=== PATIENT | female | born 1980 | race Hispanic/Latino ===

== ENCOUNTER 2020-08-10 03:44 | Inpatient (IN) | payer BC ==
[2020-08-10 04:09] LABS: Hemoglobin 12.6 g/dL (12.0-16.0); Mean Corpuscular HGB CONC 35.3 g/dL (32.0-36.0); Mean Corpuscular Hemoglobin 30.9 pg (27.0-31.0); Mean Corpuscular Volume 87.3 fL (78.0-98.0); Mean Platelet Volume 7.1 fL (7.4-10.4); Platelet Count 376 thou/uL (130-400); RBC Distribution Width 11.8 % (11.5-14.5); Red Blood Cell (RBC) Count 4.08 mill/uL (4.20-5.40); White Blood Cell (WBC) Count 25.8 thou/uL (4.8-10.8)
[2020-08-10 04:18] LABS: BHCG - Serum Negative (NEGATIVE); Pregs Control Background? CLEAR/WHITE (CLR/WHITE); Pregs Control Bar Appear? YES (CONTROL BAR)
[2020-08-10 04:24] LABS: Band 15 % (5-11); Lymphocytes 11 % (21-51); MDiff Complete? YES; Monocytes 7 % (0-10); Neutrophil 67 % (42-75)
[2020-08-10] MEDS ORDERED: Ondansetron PF 4 MG/2 ML Vial ONE (04:29)
[2020-08-10] MEDS ORDERED: hydrALAZINE 20 MG/ML VIAL SLOW IVP PRN (05:55)
[2020-08-10] MEDS ORDERED: traMADol HCl 50 MG TAB PO PRN (05:55)
[2020-08-10] MEDS ORDERED: Ondansetron ODT 4 MG TAB PO PRN (05:55)
[2020-08-10] MEDS ORDERED: Dextrose 5% in Water 1,000 ML IV PRN (05:55)
[2020-08-10] MEDS ORDERED: Ondansetron PF 4 MG/2 ML Vial IVP PRN (05:55)
[2020-08-10] MEDS ORDERED: Morphine 2 MG/ML VIAL SLOW IVP PRN (05:55)
[2020-08-10] MEDS ORDERED: Ibuprofen 800 MG TAB PO PRN (05:55)
[2020-08-10] MEDS ORDERED: Dextrose 50% Abboject 50 ML SYRINGE SLOW IVP PRN (05:55)
[2020-08-10] MEDS: Acetaminophen 325 MG TAB PO SCH ×3 (06:15→17:35)
[2020-08-10] MEDS: Sodium Chloride 0.9% 1,000 ML IV SCH ×2 (06:17→08:20)
[2020-08-10 06:36] VITALS: BMI 33.4
[2020-08-10] MEDS: traMADol HCl 50 MG TAB PO PRN ×2 (08:18→21:08)
[2020-08-10] MEDS: Cyclobenzaprine 10 MG TAB PO PRN ×2 (08:18→17:31)
[2020-08-10] MEDS: Famotidine 20 MG TAB PO SCH ×2 (08:18→21:09)
[2020-08-10] MEDS: CEFAZOLIN 1 GM in Sodium Chloride 0.9% 100 ML IVPB SCH ×2 (08:19→17:35)
[2020-08-10] MEDS: Enoxaparin Sodium 40 MG/0.4 ML SYRINGE SC SCH (10:14)
[2020-08-10 12:45] LABS: SARS-CoV-2 PCR by NAA Not Detected (NotDetected)
[2020-08-10] MEDS ORDERED: ceFAZolin 1 GM/D5W 1 GM in Premix Bag 1 BAG IVPB SCH (14:00)
[2020-08-10] MEDS: Ibuprofen 200 MG TAB PO PRN (17:31)
[2020-08-11] MEDS: Acetaminophen 325 MG TAB PO SCH ×3 (00:05→12:23)
[2020-08-11] MEDS: CEFAZOLIN 1 GM in Sodium Chloride 0.9% 100 ML IVPB SCH ×2 (00:05→09:28)
[2020-08-11] MEDS: Sodium Chloride 0.9% 1,000 ML IV SCH ×2 (05:00→05:01)
[2020-08-11] MEDS: Cyclobenzaprine 10 MG TAB PO PRN ×2 (05:17→14:46)
[2020-08-11 05:44] LABS: #Basophils 0.1 thou/uL (0.0-0.2); #Eosinphils 0.9 thou/uL (0.0-0.7); #Lymphocytes 3.4 thou/uL (1.20-3.40); #Monocytes 1.1 thou/uL (0.11-0.59); #Neutrophils 7.6 thou/uL (1.40-6.50); %Basophils 0.6 % (0.0-1.0); %Eosinophils 6.6 % (0.0-10.0); %Lymphocytes 25.8 % (21.0-51.0); %Monocytes 8.3 % (0.0-10.0); %Neutrophils 58.7 % (42.0-75.0); Hemoglobin 10.9 g/dL (12.0-16.0); Mean Corpuscular HGB CONC 33.4 g/dL (32.0-36.0); Mean Corpuscular Hemoglobin 29.7 pg (27.0-31.0); Mean Platelet Volume 7.3 fL (7.4-10.4); Platelet Count 333 thou/uL (130-400); RBC Distribution Width 11.8 % (11.5-14.5); Red Blood Cell (RBC) Count 3.68 mill/uL (4.20-5.40)
[2020-08-11 06:04] LABS: Anion Gap 10 mmol/L (10-20); BUN (Urea Nitrogen) 11 mg/dL (7.0-18.7); Calc. Creatinine Clearance 172 mL/min (70-130); Calcium 8.7 mg/dL (7.8-10.44); Carbon Dioxide 25 mmol/L (22-29); Chloride 104 mmol/L (98-107); Glucose 110 mg/dL (70-105); Potassium 3.9 mmol/L (3.5-5.1); Sodium 135 mmol/L (136-145)
[2020-08-11] MEDS: Ibuprofen 200 MG TAB PO PRN (09:23)
[2020-08-11] MEDS: Famotidine 20 MG TAB PO SCH (09:24)
[2020-08-11] MEDS: Enoxaparin Sodium 40 MG/0.4 ML SYRINGE SC SCH (09:24)
[2020-08-11 11:01] VITALS: BP 111/69; TEMP 97.8
[2020-08-11] MEDS: traMADol HCl 50 MG TAB PO PRN (14:45)
== END 2020-08-11 15:30 | disposition home or self-care (01) | DRG 536 ==
LOC: ERS 03:44 → SJJU 04:50
PROVIDERS: ADMIT Surgery; ATTEND Surgery
DX: S32.302 Unspecified fracture of left ilium (principal); Z20.822 Contact with and (suspected) exposure to COVID-19; S31.040A Puncture wound with foreign body of lower back and pelvis without penetration into retroperitoneum, initial encounter; Z79.3 Long term (current) use of hormonal contraceptives; Z90.89 Acquired absence of other organs; Z90.49 Acquired absence of other specified parts of digestive tract; W34.00XA Accidental discharge from unspecified firearms or gun, initial encounter
CPT/HCPCS: 36415; 72170; 80048; 84703; 85025; 86850; 86900; 86901; 96374; J0690; J1650; J2270; J2405; J3490; U0003; U0005